=== PATIENT | female | born 1965 | race Caucasian/White ===

== ENCOUNTER → 2018-11-01 | Outpatient (CLI) | payer MEDICARE ==
[2018-11-01 13:33] LABS: Basophils % (A) 1 %; Eosinophils # (A) 0.1 k/uL (0-0.7); Eosinophils % (A) 2 %; HCT 42.7 % (34.0-46.0); Lymphocytes # (A) 2.1 k/uL (1.0-4.8); Lymphocytes % (A) 41 %; MCH 29.7 pg (25.0-35.0); MCHC 32.8 g/dL (31.0-37.0); MCV 90.5 fL (80.0-100.0); Mean Platelet Volume 6.7; Monocytes # (A) 0.3 k/uL (0-1.0); Monocytes % (A) 5 %; Neutrophils # (A) 2.6 k/uL (1.3-7.7); Neutrophils % (A) 51 %; Platelet Count 192 k/uL (150-450); RBC 4.72 m/uL (3.80-5.40); RDW 15.2 % (11.5-15.5); WBC 5.2 k/uL (3.8-10.6)
== END | disposition home or self-care (01) ==
LOC: LABWHC1 12:23
PROVIDERS: ATTEND Psychiatry & Neurology Neurology
DX: G40.209 Localization-related (focal) (partial) symptomatic epilepsy and epileptic syndromes with complex partial seizures, not intractable, without status epilepticus (principal)
CPT/HCPCS: 36415; 80164; 80175; 84450; 84460; 85025

== ENCOUNTER → 2020-01-06 | Outpatient (CLI) | payer MEDICARE ==
[2020-01-06 11:01] LABS: Basophils # (A) 0.1 k/uL (0-0.2); Basophils % (A) 1 %; Eosinophils # (A) 0.1 k/uL (0-0.7); Eosinophils % (A) 2 %; HCT 43.2 % (34.0-46.0); HGB 14.4 gm/dL (11.4-16.0); Lymphocytes # (A) 2.1 k/uL (1.0-4.8); Lymphocytes % (A) 44 %; MCH 31.8 pg (25.0-35.0); MCHC 33.3 g/dL (31.0-37.0); MCV 95.3 fL (80.0-100.0); Mean Platelet Volume 6.9; Monocytes # (A) 0.3 k/uL (0-1.0); Monocytes % (A) 7 %; Neutrophils # (A) 2.2 k/uL (1.3-7.7); Neutrophils % (A) 45 %; Platelet Count 147 k/uL (150-450); RBC 4.54 m/uL (3.80-5.40); RDW 13.6 % (11.5-15.5); WBC 4.8 k/uL (3.8-10.6)
== END | disposition home or self-care (01) ==
LOC: LABWHC1 10:00
PROVIDERS: ATTEND Psychiatry & Neurology Neurology
DX: G40.209 Localization-related (focal) (partial) symptomatic epilepsy and epileptic syndromes with complex partial seizures, not intractable, without status epilepticus (principal)
CPT/HCPCS: 36415; 80175; 84460; 85025

== ENCOUNTER → 2021-01-26 | Outpatient (CLI) | payer MEDICARE ==
[2021-01-26 19:26] LABS: Basophils # (A) 0.03 X 10*3/uL (0.00-0.10); Basophils % (A) 0.8 %; Eosinophils # (A) 0.03 X 10*3/uL (0.04-0.35); Eosinophils % (A) 0.8 %; HCT 39.4 % (37.2-46.3); HGB 12.6 g/dL (12.0-15.0); Lymphocytes % (A) 45.8 %; MCH 29.9 pg (27.0-32.0); MCV 93.6 fL (80.0-97.0); Mean Platelet Volume 9.8 fL (9.5-12.2); Monocytes # (A) 0.33 X 10*3/uL (0.20-1.00); Monocytes % (A) 8.4 %; Neutrophils # (A) 1.73 X 10*3/uL (1.80-7.70); Neutrophils % (A) 43.9 %; Platelet Count 172 X 10*3/uL (140-440); RBC 4.21 X 10*6/uL (4.10-5.20); RDW 13.5 % (11.5-14.5); WBC 3.93 X 10*3/uL (4.50-10.00)
[2021-01-26 20:57] LABS: Valproic Acid (Depakene) 94.1 ug/mL (50.0-100.0)
== END | disposition home or self-care (01) ==
LOC: LABWHC1 12:40
PROVIDERS: ATTEND Psychiatry & Neurology Neurology
DX: G40.209 Localization-related (focal) (partial) symptomatic epilepsy and epileptic syndromes with complex partial seizures, not intractable, without status epilepticus (principal)
CPT/HCPCS: 36415; 80164; 80175; 84450; 84460; 85025

== ENCOUNTER → 2023-01-06 | Outpatient (CLI) | payer MEDICARE, OTHER | END | disposition home or self-care (01) | LOC: LABWHC1 11:59 | PROVIDERS: ATTEND Psychiatry & Neurology Neurology | DX: G40.909 Epilepsy, unspecified, not intractable, without status epilepticus (principal) | CPT/HCPCS: 36415; 80175 ==

== ENCOUNTER → 2024-02-20 | Outpatient (CLI) | payer MEDICARE, OTHER ==
--- NOTE | 2024-02-20 17:37 | CT ---
EXAMINATION TYPE: CT thor lumbar spine wo con CT DLP: 1887.90 mGycm, Automated exposure control for dose reduction was used. DATE OF EXAM: 02/20/2024 2:29 PM CLINICAL INDICATION:Female, 58 years old with history of R29.898 BILAT LEG WEAKNESS; Bilateral leg we akness. COMPARISON: None TECHNIQUE: Axial images of the thoracic and lumbar spine were obtained without contrast. Coronal and sagittal reformats were performed. CT Contrast: Contrast used: none. FINDINGS: Thoracic: The thoracic vertebral bodies have preserved heights and alignment. Tiny posterior disc osteophyte c omplex at T6-T7 without significant effacement of anterior thecal sac. The remaining thoracic interve rtebral discs and osseous structures have normal appearance without significant spinal canal or neur al foraminal narrowing. Lumbar: Alignment: There are 5 lumbar type vertebral bodies within normal alignment. Bone: No evidence of fracture is identified. Discs: T12-L1: No spinal canal or neural foraminal stenosis is identified. L1-L2: Broad based disc bulge without significant effacement of anterior thecal sac. No neural forami nal stenosis identified. L2-L3: No spinal canal or neural foraminal stenosis is identified. L3-L4: Left foraminal disc bulge. No significant central canal stenosis. The right neural foramen is patent. Moderate left neural foraminal stenosis. L4-L5: Broad based disc bulge and ligamentum flavum buckling and bilateral facet of the contributing to mild to moderate central canal stenosis. Moderate bilateral neuroforaminal stenosis. L5-S1: No spinal canal or neural foraminal stenosis is identified. Other: Calcified left mesenteric lymph node measuring up to 1.3 cm. IMPRESSION: 1. No evidence of acute fracture of the thoracolumbar spine. 2. Minimal degenerative disc disease of the thoracic spine. Mild to moderate multilevel degenerative disc disease of the lumbar spine which is most pronounced at L4-L5 with mild to moderate central cassandra l stenosis as described above. [facility], , 02/20/2024 5:35 PM
== END | disposition home or self-care (01) ==
LOC: RADCTMAIN 14:01
PROVIDERS: ATTEND Psychiatry & Neurology Neurology
DX: M48.061 Spinal stenosis, lumbar region without neurogenic claudication (principal); M51.34 Other intervertebral disc degeneration, thoracic region; M51.369 Other intervertebral disc degeneration, lumbar region without mention of lumbar back pain or lower extremity pain; R29.898 Other symptoms and signs involving the musculoskeletal system
CPT/HCPCS: 72128; 72131

== ENCOUNTER → 2024-10-15 | Outpatient (CLI) | payer MEDICARE, OTHER ==
[2024-10-15 15:06] LABS: HCT 25.7 % (37.2-46.3); HGB 7.0 g/dL (12.0-15.0); MCH 20.1 pg (27.0-32.0); MCHC 27.2 g/dL (32.0-37.0); MCV 73.9 FL (80.0-97.0); NRBC Per 100 WBC 0 X 10*3/uL (0.00-0.01); Platelet Count 232 X 10*3/uL (140-440); RBC 3.48 X 10*6/uL (4.10-5.20); RDW 16.1 % (11.5-14.5); WBC 3.64 X 10*3/uL (4.50-10.00)
[2024-10-15 15:23] LABS: NT-Pro-B-Type Natriuretic Pept 176 pg/mL (0-125)
[2024-10-15 15:34] LABS: Basophils # (A) 0.03 X 10*3/uL (0.00-0.10); Basophils % (A) 0.8 %; Eosinophils # (A) 0.04 X 10*3/uL (0.04-0.35); Eosinophils % (A) 1.1 %; Hypochromasia (M) 2+ (None Seen); Immature Grans, Automated 0.30 %; Lymphocytes # (A) 1.44 X 10*3/uL (0.90-5.00); Lymphocytes % (A) 39.6 %; Microcytosis (M) 2+ (None Seen); Monocytes # (A) 0.36 X 10*3/uL (0.20-1.00); Monocytes % (A) 9.9 %; Neutrophils # (A) 1.76 X 10*3/uL (1.80-7.70); Neutrophils % (A) 48.3 %
[2024-10-15 15:49] LABS: Bilirubin,Urine Negative (Negative); Blood,Urine Negative (Negative); Color,Urine Yellow (Yellow); Ketones,Urine Trace (Negative); Nitrite,Urine Negative (Negative); PH, Urine 7.0; Specific Gravity,Urine 1.025 (1.001-1.030); Urobilinogen,Urine 1.0 E.U./DL
[2024-10-15 16:04] LABS: ALT 8 U/L (8-44); AST 16 U/L (13-35); Albumin 3.8 g/dL (3.8-4.9); Albumin/Globulin Ratio 1.65 Ratio (1.60-3.17); Alkaline Phosphatase 47 U/L (41-126); Anion Gap 10.60 mmol/L (4.00-12.00); BUN/Creat Ratio 14.30 Ratio (12.00-20.00); Blood Urea Nitrogen 14.3 mg/dL (9.0-27.0); Calcium 9.0 mg/dL (8.7-10.3); Carbon Dioxide 25.4 mmol/L (21.6-31.8); Chloride 107 mmol/L (96-109); Cholesterol 142.00 mg/dL (0.00-200.00); Globulin 2.3 g/dL (1.6-3.3); Glucose 91 mg/dL (70-110); HDL Cholesterol 48.70 mg/dL (40.00-60.00); LDL Cholesterol,Calculated 76.0 mg/dL (0.0-131.0); Potassium 4.4 mmol/L (3.5-5.5); Sodium 143 mmol/L (135-145); T4, Free (Free Thyroxine) 0.88 ng/dL (0.80-1.80); Total Protein 6.1 g/dL (6.2-8.2); Triglycerides 86.30 mg/dL (0.00-149.00); VLDL Calculation 17.26 mg/dL (5.00-40.00)
[2024-10-15 16:13] LABS: Bacteria,Urine 1+ (None Seen)
== END | disposition home or self-care (01) ==
LOC: LABWHC1 10:25
PROVIDERS: ATTEND Psychiatry & Neurology Neurology
DX: E03.9 Hypothyroidism, unspecified (principal); E78.5 Hyperlipidemia, unspecified; G40.909 Epilepsy, unspecified, not intractable, without status epilepticus; R60.0 Localized edema; Z79.899 Other long term (current) drug therapy
CPT/HCPCS: 36415; 80053; 80061; 80164; 80175; 81001; 83036; 83880; 84439; 84443; 85025; 85652; 86140; 86376; 86800